=== PATIENT | male | born 1950 | race Caucasian/White ===

== ENCOUNTER → 2018-01-14 11:51 | Outpatient (CLI) | payer MEDICARE, BC, OTHER, SELFPAY ==
--- NOTE | 2018-01-14 | DI.MRI.S_ITS ---
PROCEDURE: MR KNEE RT WO CON INDICATIONS: RIGHT KNEE OSTEOARTHRITIS TECHNIQUE: Noncontrast sagittal PD fast spin echo and T2 fast spin echo with fat saturation, sagittal 3-D FLASH with fat saturation; coronal T1 spin echo and PD fast spin echo with fat saturation, and axial PD fast spin echo with fat saturation through the knee. COMPARISON: None. FINDINGS: Image quality: Excellent. Menisci: The medial and lateral menisci demonstrate normal morphology and internal signal. The meniscal root ligaments appear intact. Cruciate ligaments: The anterior and posterior cruciate ligaments appear intact. Medial structures: The lateral collateral ligament appears moderately degenerated but the medial meniscus is largely absent, and appears likely to have been involved by both degenerative involution and prior meniscal tears. The posterior oblique ligament, semimembranosus tendon insertions, oblique popliteal ligament, and meniscocapsular junction appear intact. Visualized portions of the pes anserinus tendons appear normal. No abnormal bursal fluid. Lateral structures: The lateral collateral ligament, long and short heads of the biceps femoris tendon appear intact. The popliteus tendon appears normal; the popliteofibular ligament appears intact. The posterosuperior and anteroinferior popliteomeniscal fascicles appear intact. The arcuate and fabellofibular ligaments appear intact, on either side of the lateral inferior geniculate artery. Iliotibial band appears normal. Anterior structures: The quadriceps and patellar tendons appear intact. Patellar alignment is normal. No femoral trochlear dysplasia or ventral trochlear prominence. No edema in the infrapatellar fat pad. Bones and cartilage: No traumatic acute appearing bone marrow contusions or fractures but there is extensive osteophytic spurring is seen along the medial compartment borders, and also small areas of reactive mild narrowing edema adjacent to areas of maximal osteoarthritic change. The cartilage of the medial and lateral femorotibial compartments, as well as the patellofemoral compartment, appears probably abnormal in thickness, virtually absent from the medial compartment where [id number] articulation is present. There is severe lateral compartment thinning of the articular cartilage is present and the the patellofemoral joint shows asymmetric lateral greater than medial facet degenerative thinning that is moderate overall. Joint space: There is a moderate excess of knee joint fluid. A moderately large posterior medial Foster's cyst is present with interdigitating fluid tracking inferiorly from the cyst indicating likely partial cyst rupture. Normal appearing synovial plicae are incidentally noted. IMPRESSION: Severe degenerative changes are present at the right knee, most pronounced at the medial compartment where the articular cartilage is virtually absent and the medial meniscus also appears to have involuted through degenerative change. Moderately severe degenerative change at the lateral compartment and moderate such degeneration at the patellofemoral joint. No intra-articular loose body is seen. A moderate joint effusion is found as expected considering the degree of degeneration present, and there is a moderately large partially ruptured Foster cyst at the posterior medial knee. Dictated by: Karan Pelletier M.D. on 01/14/2018 at 17:02 Approved by: Karan Pelletier M.D. on 01/14/2018 at 17:07
== END ==
PROVIDERS: Visit Provider Orthopaedic Surgery
DX: M17.11 Unilateral primary osteoarthritis, right knee (principal)
CPT/HCPCS: 73721

== ENCOUNTER 2018-02-03 06:46 | Day surgery (SDC) | payer MEDICARE, BC, OTHER, SELFPAY ==
[2018-01-20 12:53] VITALS: BMI 29.9
[2018-02-03] VITALS (14 sets, daily range): BP systolic 119–166; BP diastolic 63–102; PULSE 89–118; RESP 12–20; TEMP 36.3–37.1; O2SAT 92–96; BMI 29.9
--- NOTE | 2018-02-03 06:00 | DI.RAD.S_ITS ---
PROCEDURE: XR KNEE RT 1TO2V INDICATIONS: post op TECHNIQUE: 2 view(s) of the knee acquired. COMPARISON: [facility], CR, XR KNEE ARTHRITIC SERIES , 12/28/2017, 13:15. FINDINGS: Bones: Patient is status post knee joint arthroplasty. Hardware components are in expected positions. Visualized bony structures are intact. Soft tissues: Overlying postoperative changes are noted. IMPRESSION: Acute postoperative changes of total right knee arthroplasty. Dictated by: Antonio Paul M.D. on 02/03/2018 at 11:32 Approved by: Antonio Paul M.D. on 02/03/2018 at 11:33
[2018-02-03] MEDS: PREGABALIN 75 MG CAPSULE PO (07:20)
[2018-02-03] MEDS: ACETAMINOPHEN 325 MG TABLET 975 MG PO (07:20)
[2018-02-03] MEDS: CELECOXIB 200 MG CAPSULE PO (07:20)
[2018-02-03] MEDS: LACTATED RINGERS 1,000 ML 42 ML IV ×2 (07:30→09:48)
--- NOTE | 2018-02-03 07:44 | PM.PREOP ---
Pre-operative Note Interval Note Pre-op Check: Yes History & Physical Reviewed by Physician and Yes Exam Performed Changes: No
--- NOTE | 2018-02-03 07:45 | PM.OP.1 ---
Operative Date/Time/Diagnoses Date of procedure: 02/03/18 Pre-op diagnosis: Right knee osteoarthritis Post-op diagnosis: same Procedure & Clinicians Procedure: Right total knee arthroplasty Same procedure as scheduled: Yes Surgeon: Sarbjit Bess Customer Service Coordinator: Naif Ortiz Plan for aftercare: [facility] protocol for total knee arthroplasty. Aspirin for DVT prophylaxis.
--- NOTE | 2018-02-03 08:07 | SUR.PREOP ---
Block start time 0755[] . Monitoring initiated and maintained throughout procedure. Oxygen and medications given per anesthesiologist instructions. Patient remained stable throughout procedure, no adverse reactions noted. Block end time [0800].
[2018-02-03] MEDS: CEFAZOLIN 2 GM/100 ML FROZ.PIGGY IV ×2 (08:10→15:50)
[2018-02-03] MEDS: LIDOCAINE 1% W/EPI INJ 20 ML INJ (08:20)
--- NOTE | 2018-02-03 08:33 | PM.PROC.1 ---
Procedures Date/Time Date of procedure: 02/03/18 Time of procedure: 07:50 General Procedure description: Ultrasound guided adductor canal nerve block for post op pain control after right TKA by Dr. Bess. Risk and benefits of procedure discussed with patient. ASA monitoring applied to patient. O2 given via nasal cannula. 1 mg Versed and 50 mcg fentanyl given for procedural sedation. Skin site was prepped with chlorhexidine and allowed to fully dry. Sterile gloves, mask, hat and probe cover were used to maintain sterility. 2% lidocaine and 30ga needle was used to make a small skin wheal at needle insertion site. Under ultrasound guidance, a 21ga 100mm Pajunk needle was directed into the adductor canal near femoral artery and saphenous nerve at the level of mid thigh. Patient reported no parasthesias. After negative aspiration, 20 mL 0.5% ropivicaine and 10mg dexamethasone were injected around saphenous nerve. Patient tolerated procedure well.
--- NOTE | 2018-02-03 08:48 | SUR.OPER ---
Supine on padded OR bed. Pillow under head, arms secured on padded armboards <90 degree abduction. Safety belt across torso. Non-operative leg secured with tape over blanket over lower leg. Operative leg secured in Noah positioner. Foam padded brace at thigh of operative leg. gel bump under right hip.
[2018-02-03] MEDS: BUPIVACAINE 0.5% W/ EPI (PF) 20 ML, BUPIVACAINE LIPOSOME 266 MG, SODIUM CHLORIDE 0.9% 8... INJ (08:55)
[2018-02-03] MEDS: POVIDONE-IODINE 15 ML, SODIUM CHLORIDE 0.9% 250 ML TOP (08:55)
[2018-02-03] MEDS: BUPIVACAINE 0.5% W/ EPI (PF) 10 ML, TRANEXAMIC ACID 1,000 MG, SODIUM CHLORIDE 0.9% 20 ML INJ (08:56)
--- NOTE | 2018-02-03 10:42 | PM.OP.1 ---
Operative Date/Time/Diagnoses Date of procedure: 02/03/18 Time of procedure: 10:42 Pre-op diagnosis: Right knee osteoarthritis Post-op diagnosis: same Procedure & Clinicians Procedure: Right total knee arthroplasty Same procedure as scheduled: Yes Indications: The patient presents today for total knee arthroplasty after failure of conservative treatment. The nature of the procedure including the risks and benefits, alternatives, postoperative course and expected outcome were discussed and all questions answered. Consent was obtained. Operative site confirmed and marked. Surgeon: Sarbjit Bess Jewelry Bench Molder: Mira Sigala Anesthesia Type: General, Spinal and Local Operative Notes Findings: Preoperative range of motion was 15-90 degrees with a hard endpoint on flexion. Postoperative range of motion was 0-135 degrees. The knee hung to 115? with gravity alone. Closure Type: primary Specimen(s): none sent Implants & Drains: [employer] BCS: 6 femoral component, 6 tibial component, 10 mm BCS polyethylene tray and 35 x 9 mm round patella Applied: implant(s) Estimated Blood Loss (mL): 75 Blood products transfused: none Tourniquet time (min): 27 Procedure in detail: The patient was taken to the operative suite and placed under general and spinal anesthesia. The patient was given prophylactic antibiotics prior to surgery. The patient was also given tranexamic acid, 1 g, just prior to surgery for postoperative hemostasis. The lateral knee was prepped and the joint injected with 20 mL of 1% Lidocaine with epinephrine. The knee was then prepped and draped in usual sterile fashion. The leg was exsanguinated with an Esmarch dressing and the tourniquet raised to [250] torr. A 15 cm anterior incision was made. Next a medial trivector arthrotomy was made. The extensor mechanism was marked to ensure accurate repair. Initial exposing dissection was carried out medially and laterally. The knee was then extended and the patellar thickness was measured and a cut made removing approximately [9] mm of bone[ with a goal of restoring normal patellar thickness]. The patella was then sized and drilled. Some excess lateral bone was excised and the patellofemoral ligament released. The tourniquet was then released. The knee was then flexed and the [employer] femoral guide was placed. The anterior pins were placed and the distal rotation holes drilled. The distal cutting guide was placed and the templated distal femoral cut was made. A +2 femoral cut was then made with a normal cutting block given his 15 degree flexion contracture. The templating cutting block was then placed and the anterior, posterior and chamfer cuts made. The [employer] tibial guide was placed and the alignment checked along the axis of the proximal tibial with a jt. The proximal tibial cut was then made with an oscillating saw. All meniscus and bony debris was then removed. Flexion extension gaps were checked. The knee was tight posteriorly both medially and laterally and there is generalized tightness medially. Medial release was performed with an 18 gauge needle in the MCL as well as removal of large osteophytes. This better balance the knee medial lateral although there was still some increased lateral laxity particularly in extension. I did not feel I could release the MCL in further. The knee was still tight in flexion and could not fit the 9 mm block. The femur was reconnected to take another 2 mm posteriorly which corrected the flexion-extension gaps. The soft tissues were then injected with a combination of 20 mL of half percent Marcaine with epinephrine and 20 mL of Exparel. The trial components were then placed. The knee went into full extension and flexion beyond 120?. There was good medial- lateral balance throughout motion with some increase of lateral versus medial laxity in extension. Patellar tracking was excellent. The trial components were removed and size is confirmed for the final implants. The knee was then exsanguinated with an Esmarch dressing and the tourniquet reapplied for cementing. The knee was cleansed with Pulsavac irrigation and dried. The final components were cemented in with high viscosity vacuum mixed bone cement with antibiotics. The knee was held in extension and the patellar clamp until the cement had adequately cured. The knee was then irrigated with dilute Betadine solution. The extensor mechanism was closed with 5 interrupted #1 Vicryl sutures in 90 degrees of flexion. [The joint was then injected with a combination of 1 g of tranexamic acid and 20 mL of quarter percent Marcaine with epinephrine.] The subcutaneous tissue was closed with 2-0 Vicryl. The skin was closed with [yesenia and surgical adhesive]. [ An Aquacell] dressing and Juan wrap were then applied. Complications: none Condition: stable Disposition: PACU Plan for aftercare: [facility] postoperative protocol. Probable discharge to home today. Aspirin for DVT prophylaxis.
--- NOTE | 2018-02-03 10:49 | P.OP_ITS ---
Operative Date/Time/Diagnoses Date of procedure: 02/03/18 Time of procedure: 10:42 Pre-op diagnosis: Right knee osteoarthritis Post-op diagnosis: same Procedure & Clinicians Procedure: Right total knee arthroplasty Same procedure as scheduled: Yes Indications: The patient presents today for total knee arthroplasty after failure of conservative treatment. The nature of the procedure including the risks and benefits, alternatives, postoperative course and expected outcome were discussed and all questions answered. Consent was obtained. Operative site confirmed and marked. Surgeon: Sarbjit Bess Property Analyst: Mira Sigala Anesthesia Type: General, Spinal and Local Operative Notes Findings: Preoperative range of motion was 15-90 degrees with a hard endpoint on flexion. Postoperative range of motion was 0-135 degrees. The knee hung to 115? with gravity alone. Closure Type: primary Specimen(s): none sent Implants & Drains: [employer] BCS: 6 femoral component, 6 tibial component, 10 mm BCS polyethylene tray and 35 x 9 mm round patella Applied: implant(s) Estimated Blood Loss (mL): 75 Blood products transfused: none Tourniquet time (min): 27 Procedure in detail: The patient was taken to the operative suite and placed under general and spinal anesthesia. The patient was given prophylactic antibiotics prior to surgery. The patient was also given tranexamic acid, 1 g, just prior to surgery for postoperative hemostasis. The lateral knee was prepped and the joint injected with 20 mL of 1% Lidocaine with epinephrine. The knee was then prepped and draped in usual sterile fashion. The leg was exsanguinated with an Esmarch dressing and the tourniquet raised to [250] torr. A 15 cm anterior incision was made. Next a medial trivector arthrotomy was made. The extensor mechanism was marked to ensure accurate repair. Initial exposing dissection was carried out medially and laterally. The knee was then extended and the patellar thickness was measured and a cut made removing approximately [9] mm of bone[ with a goal of restoring normal patellar thickness ]. The patella was then sized and drilled. Some excess lateral bone was excised and the patellofemoral ligament released. The tourniquet was then released. The knee was then flexed and the [employer] femoral guide was placed. The anterior pins were placed and the distal rotation holes drilled. The distal cutting guide was placed and the templated distal femoral cut was made. A +2 femoral cut was then made with a normal cutting block given his 15 degree flexion contracture. The templating cutting block was then placed and the anterior, posterior and chamfer cuts made. The [employer] tibial guide was placed and the alignment checked along the axis of the proximal tibial with a jt. The proximal tibial cut was then made with an oscillating saw. All meniscus and bony debris was then removed. Flexion extension gaps were checked. The knee was tight posteriorly both medially and laterally and there is generalized tightness medially. Medial release was performed with an 18 gauge needle in the MCL as well as removal of large osteophytes. This better balance the knee medial lateral although there was still some increased lateral laxity particularly in extension. I did not feel I could release the MCL in further. The knee was still tight in flexion and could not fit the 9 mm block. The femur was reconnected to take another 2 mm posteriorly which corrected the flexion-extension gaps. The soft tissues were then injected with a combination of 20 mL of half percent Marcaine with epinephrine and 20 mL of Exparel. The trial components were then placed. The knee went into full extension and flexion beyond 120?. There was good medial- lateral balance throughout motion with some increase of lateral versus medial laxity in extension. Patellar tracking was excellent. The trial components were removed and size is confirmed for the final implants. The knee was then exsanguinated with an Esmarch dressing and the tourniquet reapplied for cementing. The knee was cleansed with Pulsavac irrigation and dried. The final components were cemented in with high viscosity vacuum mixed bone cement with antibiotics. The knee was held in extension and the patellar clamp until the cement had adequately cured. The knee was then irrigated with dilute Betadine solution. The extensor mechanism was closed with 5 interrupted #1 Vicryl sutures in 90 degrees of flexion. [The joint was then injected with a combination of 1 g of tranexamic acid and 20 mL of quarter percent Marcaine with epinephrine.] The subcutaneous tissue was closed with 2-0 Vicryl. The skin was closed with [ yesenia and surgical adhesive]. [ An Aquacell] dressing and Juan wrap were then applied. Complications: none Condition: stable Disposition: PACU Plan for aftercare: [facility] postoperative protocol. Probable discharge to home today. Aspirin for DVT prophylaxis.
--- NOTE | 2018-02-03 11:27 | SUR.PHASEI ---
Glasses with patient on transfer to acute care.
[2018-02-03] MEDS: LACTATED RINGERS 1,000 ML 125 ML IV (12:12)
--- NOTE | 2018-02-03 12:32 | PC.NURSE ---
Addendum entered by Ada Del Cid R.N. 02/03/18 14:45: CMS intact to LE, pt OOB with physical therapy and cleared to d/c home. Pt reports moderate pain to rt knee with ambulation up and down stairs but at rest denies any pain and refusing pain medication. Original Note: Transferred from PACU in bed ~1130, report received from MARQUITA Ch. Pt alert and talking. Reports no pain but numbess to amy feet. Calf SCD on. RA 95%. Pt in bed sitting upright, off-loading pressure from hips, massaging feet. Eager to d/c home tonight. P.T w/ brief eval, will assess after spinal block wears off. Spouse at bedside. Will continue to monitor CMS.
--- NOTE | 2018-02-03 14:19 | PM.PNPO.1 ---
Subjective Date Patient Seen: 02/03/18 Time Patient Seen: 11:19 Interval history: Patient seen bedside s/p R. TKA POD #0. Doing well, up with PT. Ready to go home. Exam Vital Signs (past 8 hours): - 02/03/18 07:31 02/03/18 10:42 02/03/18 10:47 Temperature 98.0 F 98.7 F Pulse Rate 105 H 118 H 114 H Respiratory Rate 18 12 14 Blood Pressure 166/102 H 130/73 H 129/70 H Pulse Oximetry 95 92 92 02/03/18 10:53 02/03/18 10:58 02/03/18 11:03 Temperature Pulse Rate 105 H 104 H 102 H Respiratory Rate 12 12 12 Blood Pressure 122/71 H 134/72 H 132/66 H Pulse Oximetry 96 96 93 02/03/18 11:08 02/03/18 11:14 02/03/18 11:27 Temperature 97.8 F 97.4 F L Pulse Rate 104 H 98 H 96 H Respiratory Rate 12 15 16 Blood Pressure 119/63 124/63 H 133/85 H Pulse Oximetry 94 95 95 Oxygen Delivery Method Room Air Oxygen Flow Rate 2 Narrative Exam Narrative: [facility] NAD A&O x3. Right knee dressing clean, dry and intact, calf soft and compressible. FROM of the ankle. Assessment & Plan Post-op (1) Primary osteoarthritis of right knee: Current Visit: Yes Status: Acute Postoperative Procedures Operation Date: 02/03/18 07:45 Actual Procedures Side Surgeon p Total Knee Arthroplasty Right Sarbjit Bess MD D/C home after cleared by PT. Follow post-operative care plan as outlined in [facility] book. Time Spent With Patient less than 15 minutes Quality VTE Deep Vein Thrombosis/Pulmonary Embolism Present on Admission: No
--- NOTE | 2018-02-03 14:35 | PT.IIE ---
Current Diagnoses Unilateral primary osteoarthritis, right knee (02/03/18) Surgery Performed Operation Date: 02/03/18 07:45 Actual Procedures p Total Knee Arthroplasty(Right) - Sarbjit Bess MD Surgical History (Last Updated 01/20/18 @ 13:15 by Estephanie Villegas, RN) History of arthroscopy of left knee (Acute) History of repair of right rotator cuff (Acute) Hx of hernia repair (Acute) Hx of lithotripsy (Acute) Hx of rhinoplasty (Acute) Hx of tonsillectomy (Acute) S/P colon resection (Acute) Status post total hip resurfacing (Acute) Medical History (Last Updated 01/20/18 @ 13:46 by Estephanie Villegas RN) Colovesical fistula (Acute) Easy bruisability (Acute) Eyes sensitive to light (Acute) HTN (hypertension) (Acute) Tonsillectomy planned (Acute) Physical Therapy Inpatient Evaluation/Re-Eval M1 PT/OT-IP Prior Functional Status Start: 02/03/18 15:38 Freq: NEEDED Status: Active Protocol: Document 02/03/18 14:35 MDD (Rec: 02/03/18 15:50 MDD [email or web address]) Medical Review Prior Functional Status Medical History Reviewed Yes Communication nml Mobility and Gait independent Activities of Daily Living and IADL's independent Prior Functional Level (Other details) independent Social History Household Members spouse Living Arrangements House Number of Floors (Floors) Two Floors Number of Stairs To Enter/Railing? 2 steps, B railing to a landing, 7 steps with R hand railing to enter home. Does not need to access lower floor . Home Environment High Toilet Walk in Shower Home Equipment Front Wheel Walker Straight Cane Grab Bars In Shower Employment Status Retired Additional Social History Comment Pt lives with his who is also retired. Has a son and daughter in law that live close by M2 PT-IP Current Condition Start: 02/03/18 15:38 Freq: NEEDED Status: Active Protocol: Document 02/03/18 14:35 MDD (Rec: 02/03/18 15:50 MDD [email or web address]) Physical Therapy Current Condition Current Condition Evaluation Date 02/03/18 Treatment Diagnosis s/p R TKA Onset Date 02/03/18 Weight Bearing Status Weight Bearing Status Weight Bear as Tolerated M3 PT-IP Subjective Start: 02/03/18 15:38 Freq: NEEDED Status: Active Protocol: Document 02/03/18 14:35 MDD (Rec: 02/03/18 15:50 MDD [email or web address]) Subjective Physical Therapy Visit Type Type Initial Evaluation Visit Start Time 11:48 Visit Stop Time 14:35 Total Visit Minutes 39 Notes Left room from 12:02 to 14:10 to allow spinal block to wear off. Pt initially reporting numbness in both feet and unable to actively dorsiflex or plantarflex. Number of CROSSCUTTER ROLLED GLASS Visits 0 Physical Therapy Visit Comments Patient Comments Pt agreeable to working with PT this afternoon. Is motivated to go home today. Therapy Pain Assessment Pain Present Pain Present Denied Pain M4 PT-IP Mobility and Gait Start: 02/03/18 15:38 Freq: NEEDED Status: Active Protocol: Document 02/03/18 14:35 MDD (Rec: 02/03/18 15:50 MDD [email or web address]) PT-Bed Mobility Assessment Rolling Type of Rolling Roll to Right Level of Assist Independent Supine to Sit Supine to Sit Standby Assistance Sit to Supine Sit to Supine Independent Scooting Scooting to Edge of Bed Independent Scooting Up and Down in Bed Independent PT-Transfer Assessment Sit to and From Stand Sit to and from Stand Contact Guard Assistance Equipment Transfer Assistive Device Gait Belt Standard Walker Transfers Transfer Destination Wheelchair Transfer Ability Level of Assist Contact Guard Assistance Gait Assessment Gait Gait Assistance Required: Standby Assistance Contact Guard Assist Distance (Feet) (feet) 192 Able to Maintain Weight Bearing Status Yes During Gait Assistive Devices Assistive Device Gait Belt Standard Walker Gait Deviations General Gait Pattern Within Normal Limits Antalgic Flexed Trunk Wide Based Gait Comments Gait Comments Pt required cues to slow gait speed and to avoid placing walker so far ahead of him. Stair Climbing Assessment Evaluation Level of Assist On Stairs Standby Assistance Contact Guard Assistance Devices Stair Climbing Assistive Devices Right Railing Technique/Endurance Stair Climbing Direction Ascend and Descend Stair Climbing Technique Step to Step Number of Steps Climbed 9 Query Text: Stair Climbing Set # Repetitions (reps) 3 Comments Stair Climbing Comments Pt prefers to step down backwards, so practiced this way on the last set. He demonstrated safety with SBA PT-Balance Assessment Sitting Balance and Reactions Static Sitting Balance Ability Normal Dynamic Sitting Balance Ability Normal Standing Balance and Reactions Static Standing Balance Ability Normal Dynamic Standing Balance Ability Good M5 PT-IP Objective Assessments Start: 02/03/18 15:38 Freq: NEEDED Status: Active Protocol: Document 02/03/18 14:35 MDD (Rec: 02/03/18 15:50 MDD [email or web address]) Orientation Orientation/Cognition Level of Alertness Alert Orientation Name Age Birthday Month Date Year Day of Week Place Situation Language Function Ability No Deficits Noted Safety Awareness Understands Safety Issues Memory Description No Deficits Noted Gross Range of Motion Lower Extremity ROM Assessment Within Functional Limits Strength Lower Extremity Strength Assessment Within Functional Limits Sensation Assessment Sensation Gross Sensation WNL Comments Sensation Comments Upon second attempt, nml sensation to light tough had returned. M6 PT-IP Treatment Start: 02/03/18 15:38 Freq: NEEDED Status: Active Protocol: Document 02/03/18 14:35 MDD (Rec: 02/03/18 15:50 MDD [email or web address]) Physical Therapy Treatment Exercises Knee ROM Measurement 0-90 Education Education Provided Precautions Weight Bearing Status Post-Op Packet Safety Other Treatments Other Treatment Performed Quick review of HEP. Pt did not perform today, noted that he felt confident with them. M7 PT-IP Assessment and Plan Start: 02/03/18 15:38 Freq: NEEDED Status: Active Protocol: Document 02/03/18 14:35 MDD (Rec: 02/03/18 15:50 MDD [email or web address]) PT Summary Assessment and Plan Potential Rehabilitation Potential Excellent Status of Condition at Evaluation Stable Summary Progress Towards Goals Safe For Discharge Goals Met Assessment Summary Pt demonstrates independent bed mobility and CGA to SBA for gait. Demonstrates ability to perform stair training safely. Considered safe to d/c home when medically appropriate. Is already scheduled for outpatient PT in [place]. Goals Bed Mobility Goal Standby Assistance Transfer Goal Standby Assistance Gait Goal Standby Assistance Gait Distance 150 Other Goals Ascend/descend 7 stairs with R hand railing with CGA to SBA. Days to Meet Goals 1 Frequency of Treatment Frequency Of Treatment Discharge Treatment Plan Physical Therapy Treatment Plan Gait Training Therapeutic Exercise Other Recommendations and Next Treatment If pt has not d/c to home by [facility] tomorrow AM, may review therex and recheck if pt has any additional questions. Recommendations To Nursing Amount of Assist Needed 1 Person Assist Discharge Recommendations PT Discharge Recommendations Home Outpatient PT
--- NOTE | 2018-02-03 17:10 | PC.NURSE ---
Abena shift note: Patient awake and alert, RLE WBAT in room. No c/o pain or discomfort. CMS intact to RLE. VSS and afebrile. Discharge instructions given to patient, verbalized understanding of instructions, discussed importance of F/U with Ortho on 02/09/2018.
== END 2018-02-03 17:30 | disposition home or self-care (01) ==
LOC: AC 14:19 → OR 02-04 11:55
PROVIDERS: PCP Internal Medicine; Visit Provider Orthopaedic Surgery
PROC: 0SRC0JZ Replacement of Right Knee Joint with Synthetic Substitute, Open Approach (ICD-10-PCS; CPT 27447; principal; 2018-02-03 07:45)
DX: M17.11 Unilateral primary osteoarthritis, right knee (principal); G89.18 Other acute postprocedural pain; Z87.891 Personal history of nicotine dependence; I10 Essential (primary) hypertension
CPT/HCPCS: 27447; 64450; 73560; 97116; 97161; C1776; C9290; J0690; J1100; J2250; J2405; J2704; J2795; J3010

== ENCOUNTER → 2018-06-10 10:40 | Outpatient (CLI) | payer MEDICARE, BC, OTHER, SELFPAY ==
[2018-02-03 07:08] VITALS: BMI 29.9
--- NOTE | 2018-06-10 | DI.MRI.S_ITS ---
PROCEDURE: MR KNEE LT WO CON INDICATIONS: Osteoarthritis. TECHNIQUE: Noncontrast sagittal PD fast spin echo and T2 fast spin echo with fat saturation, sagittal 3-D FLASH with fat saturation; coronal T1 spin echo and PD fast spin echo with fat saturation, and axial PD fast spin echo with fat saturation through the knee. COMPARISON: [facility] [place], CR, XR KNEE ARTHRITIC SERIES RT, 03/08/2018, 10:49. FINDINGS: Image quality: Excellent. Menisci: The medial meniscus demonstrates fragmentation, as well as truncation of its free edge, and a more precise signal intensity throughout its substance. Lateral meniscus demonstrates linear high signal intensity traversing its body, with demonstrating superior and inferior to the service extension, indicating complex horizontal tearing. Cruciate ligaments: The posterior cruciate ligament is intact. Anterior cruciate ligament is absent. Medial structures: The medial collateral ligament appears intact. Small amount of fluid deep to the medial collateral ligament. Mild T2 signal elevation at the tibial insertion of the semimembranosus. Visualized portions of the pes anserinus tendons otherwise appear normal. No abnormal bursal fluid. Lateral structures: The lateral collateral ligament demonstrates a small amount of fluid within its substance. The long and short heads of the biceps femoris tendon appear intact. The popliteus tendon appears normal. Iliotibial band appears normal. Anterior structures: The quadriceps and patellar tendons appear intact. Patellar alignment is normal. No femoral trochlear dysplasia or ventral trochlear prominence. No edema in the infrapatellar fat pad. Bones and cartilage: No bone marrow contusions or fractures. Moderate degree of subchondral ill-defined degenerative marrow edema and subchondral cysts within the medial femoral condyle and medial tibial plateau. Severe tricompartmental periarticular osteophyte formation. Prominent osteophyte protrudes superiorly from the superior patella. Severe diffuse articular cartilage loss overlies the weightbearing aspects of the medial femoral condyle and medial tibial plateau. Articular cartilage fibrillation overlies the medial and lateral patellar facets. Moderate articular cartilage loss overlies the patellofemoral compartment. Mild diffuse articular cartilage loss overlies the weightbearing aspects of the lateral femoral condyle and lateral tibial plateau, with superimposed mild to moderate regions of articular cartilage loss overlying the lateral femoral condyle anteriorly and the lateral tibial plateau medially. Joint space: There is a moderate knee joint effusion and a trace Foster's cyst. Small ganglion cyst along the popliteus. Multiple intra-articular loose bodies are present. Normal appearing synovial plicae are incidentally noted. IMPRESSION: 1. Medial and lateral meniscal tearing as described above. 2. Severe tricompartmental osteoarthritis with associated articular cartilage loss. 3. Medial collateral ligament bursitis. 4. Partial-thickness lateral collateral ligament tear. 5. Full-thickness anterior cruciate ligament tear. 6. Knee joint effusion, trace Foster's cyst, and multiple intra-articular loose bodies. 7. Insertional tendinitis of the semimembranosus. Dictated by: Praveen Mejia M.D. on 06/10/2018 at 11:42 Approved by: Praveen Mejia M.D. on 06/10/2018 at 11:48
== END ==
PROVIDERS: PCP Internal Medicine; Visit Provider Orthopaedic Surgery
DX: S83.272A Complex tear of lateral meniscus, current injury, left knee, initial encounter (principal); S83.242A Other tear of medial meniscus, current injury, left knee, initial encounter; S83.512A Sprain of anterior cruciate ligament of left knee, initial encounter; S83.422A Sprain of lateral collateral ligament of left knee, initial encounter; M17.12 Unilateral primary osteoarthritis, left knee; M71.562 Other bursitis, not elsewhere classified, left knee; M25.462 Effusion, left knee
CPT/HCPCS: 73721

== ENCOUNTER → 2018-06-24 08:40 | Outpatient (CLI) | payer MEDICARE, BC, OTHER, SELFPAY ==
[2018-02-03 07:08] VITALS: BMI 29.9
[2018-06-24 09:32] LABS: Add Manual Diff / Slide Review NO; Eosinophils Percent Auto 2.4 % (2-4); Hematocrit 43.3 % (41-53); Hemoglobin 15.2 g/dL (13.5-17.5); Lymphocytes Percent Auto 31.5 % (25-40); Mean Corpuscular HGB Conc 35.1 % (30-36); Mean Corpuscular Hemoglobin 31.1 PG (26-34); Mean Corpuscular Volume 88.5 fL (80-100); Monocytes Percent Auto 8.3 % (3-14); Neutrophils Absolute Auto 3400 /uL (3000-5900); Neutrophils Percent Auto 56.8 % (50-75); Platelet Count 243 X10^3/uL (150-400); Red Blood Cell Count 4.89 X10^6/uL (4.5-5.9); Red Cell Distribution Width 15.5 % (11.6-14.8)
[2018-06-24 09:50] LABS: Carbon Dioxide 22 mmol/L (22-32); Chloride 106 mmol/L (98-107); HEMOLYSIS < 15 (0-50); Potassium 4.2 mmol/L (3.4-5.1); Sodium 143 mmol/L (137-145)
== END ==
PROVIDERS: PCP Internal Medicine; Visit Provider Orthopaedic Surgery
DX: Z01.818 Encounter for other preprocedural examination (principal)
CPT/HCPCS: 36415; 80051; 85025; 93005; 93010

== ENCOUNTER 2018-07-28 11:26 | Day surgery (SDC) | payer MEDICARE, BC, OTHER, SELFPAY ==
[2018-02-03 07:08] VITALS: BMI 29.9
[2018-07-14 11:59] VITALS: BMI 30.3
[2018-07-28] VITALS (14 sets, daily range): BP systolic 112–175; BP diastolic 72–103; PULSE 92–108; RESP 9–18; TEMP 36.2–36.8; O2SAT 91–97; BMI 30.1
--- NOTE | 2018-07-28 06:00 | DI.RAD.S_ITS ---
PROCEDURE: XR KNEE LT 1TO2V INDICATIONS: post op films TECHNIQUE: 2 view(s) of the knee acquired. COMPARISON: [facility], CR, XR KNEE RT 1TO2V, 02/03/2018, 10:52. FINDINGS: Bones: Patient is status post knee joint arthroplasty. Hardware components are in expected positions. Visualized bony structures are intact. Soft tissues: Overlying postoperative changes are noted. IMPRESSION: Postsurgical changes from left total knee arthroplasty with anatomic left knee alignment. Dictated by: Prateek Olvera M.D. on 07/28/2018 at 16:52 Approved by: Prateek Olvera M.D. on 07/28/2018 at 16:52
[2018-07-28] MEDS: CELECOXIB 200 MG CAPSULE PO (12:04)
[2018-07-28] MEDS: ACETAMINOPHEN 325 MG TABLET 975 MG PO ×2 (12:04→21:59)
[2018-07-28] MEDS: PREGABALIN 75 MG CAPSULE PO (12:04)
[2018-07-28] MEDS: LACTATED RINGERS 1,000 ML 42 ML IV ×2 (12:30→14:46)
--- NOTE | 2018-07-28 13:33 | PM.PREOP ---
Pre-operative Note Interval Note History & Physical reviewed/Exam performed by Physician: Yes Changes to H&P: No
--- NOTE | 2018-07-28 13:34 | PM.OP.1 ---
Operative Date/Time/Diagnoses Date of procedure: 07/28/18 Time of procedure: 16:21 Pre-op diagnosis: Left knee osteoarthritis Post-op diagnosis: same Procedure & Clinicians Procedure: Left total knee arthroplasty Same procedure as scheduled: Yes Indications: The patient presents today for total knee arthroplasty after failure of conservative treatment. The nature of the procedure including the risks and benefits, alternatives, postoperative course and expected outcome were discussed and all questions answered. Consent was obtained. Operative site confirmed and marked. Surgeon: Sarbjit Bess Scientific Programmer Analyst: Naif Ortiz Anesthesia Type: General, Spinal and Local Operative Notes Findings: Severe osteoarthritis with varus alignment. Closure Type: primary Specimen(s): none sent Implants & Drains: [employer] BCS: 7 femoral component, 6 tibial component, 9 mm BCS polyethylene tray and 35 x 9 mm round patella Applied: implant(s) Estimated Blood Loss (mL): 50 Blood products transfused: none Tourniquet time (min): 24 Procedure in detail: The patient was taken to the operative suite and placed under general and spinal anesthesia. The patient was given prophylactic antibiotics prior to surgery. The patient was also given tranexamic acid, 1 g, just prior to surgery for postoperative hemostasis. The lateral knee was prepped and the joint injected with 20 mL of 1% Lidocaine with epinephrine. The knee was then prepped and draped in usual sterile fashion. The leg was exsanguinated with an Esmarch dressing and the tourniquet raised to 250 torr. A 15 cm anterior incision was made. Next a medial trivector arthrotomy was made. The extensor mechanism was marked to ensure accurate repair. Initial exposing dissection was carried out medially and laterally. The knee was then extended and the patellar thickness was measured and a cut made removing approximately 9 mm of bone with a goal of restoring normal patellar thickness. The patella was then sized and drilled. Some excess lateral bone was excised and the patellofemoral ligament released. The tourniquet was then released. The knee was then flexed and the [employer] femoral guide was placed. The anterior pins were placed and the distal rotation holes drilled. The distal cutting guide was placed and the templated distal femoral cut was made. The templating cutting block was then placed and the anterior, posterior and chamfer cuts made. The [employer] tibial guide was placed and the alignment checked along the axis of the proximal tibial with a jt. The proximal tibial cut was then made with an oscillating saw. All meniscus and bony debris was then removed. Flexion extension gaps were checked. The knee was still somewhat tight in both flexion and extension. This was corrected by removing another 2 mm from the tibia. No specific ligamentous balancing was required other than routine exposure and removal of extensive osteophytes. The soft tissues were then injected with a combination of 20 mL of half percent Marcaine with epinephrine and 20 mL of Exparel. The trial components were then placed. The knee went into full extension and flexion beyond 120?. There was good medial- lateral balance throughout motion with just slight increased laxity laterally and extension. Patellar tracking was excellent. The trial components were removed and size is confirmed for the final implants. The knee was then exsanguinated with an Esmarch dressing and the tourniquet reapplied for cementing. The knee was cleansed with Pulsavac irrigation and dried. The final components were cemented in with high viscosity vacuum mixed bone cement with antibiotics. The knee was held in extension and the patellar clamp until the cement had adequately cured. The knee was then irrigated with dilute Betadine solution. The extensor mechanism was closed with 5 interrupted #1 Vicryl sutures in 90 degrees of flexion. The joint was then injected with a combination of 1 g of tranexamic acid and 20 mL of quarter percent Marcaine with epinephrine. The subcutaneous tissue was closed with 2-0 Vicryl. The skin was closed with yesenia and surgical adhesive. An Aquacel dressing and Juan wrap were then applied. Complications: none Condition: stable Disposition: PACU Plan for aftercare: [facility] protocol for total knee arthroplasty.
--- NOTE | 2018-07-28 13:49 | SUR.OPER ---
Supine on padded OR bed. Pillow under head, arms secured on padded armboards <90 degree abduction. Safety belt across torso. Non-operative leg secured with tape over blanket over lower leg. Operative leg secured in DeMayo/Noah positioner. Foam padded brace at thigh of operative leg.
[2018-07-28] MEDS: CEFAZOLIN 2 GM/100 ML FROZ.PIGGY IV ×2 (14:05→21:58)
[2018-07-28] MEDS: TRANEXAMIC ACID 1,000 MG VIAL 1000 MG INJ (14:44)
[2018-07-28] MEDS: LIDOCAINE 1% W/EPI INJ 20 ML INJ (14:44)
[2018-07-28] MEDS: BUPIVACAINE LIPOSOME 266 MG/20 ML VIAL INJ (14:45)
[2018-07-28] MEDS: BUPIVACAINE 0.5% W/ EPI (PF) 10 ML, TRANEXAMIC ACID 1,000 MG, SODIUM CHLORIDE 0.9% 20 ML INJ (14:46)
[2018-07-28] MEDS: POVIDONE-IODINE 15 ML, SODIUM CHLORIDE 0.9% 250 ML TOP (14:47)
--- NOTE | 2018-07-28 16:56 | SUR.PHASEI ---
REPORT CALLED TO MARQUITA CUMMINS ON ACUTE CARE FLOOR. PT IN STABLE CONDITION, VSS. PT SITTING UP AND TALKING TO RN. PT DENIES ANY PAIN/DISCOMFORT OR NAUSEA. DRSG TO SURGICAL EXTREMITY C/D/I. SURGICAL EXTREMITY +SENSTATION. PT BEING TRANSFERRED TO ACUTE CARE FLOOR BY MARQUITA EKITA AT THIS TIME.
[2018-07-28] MEDS: TELMISARTAN 40 MG TABLET 80 MG PO (18:05)
[2018-07-28] MEDS: hydroCHLOROthiazide 12.5 MG CAPSULE PO (18:05)
[2018-07-28] MEDS: LACTATED RINGERS 1,000 ML 125 ML IV (19:02)
--- NOTE | 2018-07-28 20:21 | PC.NURSE ---
Pt denies pain to left knee and reports numbness to L foot s/p duramorph, ankle waves to bilateral feet, PPP to left foot, SIDRA wrap to left knee c/d/i, ice to left knee; HTN with BP 151/85 @ 1900, Dr Posada notified and IV fluids d/c; continuous pulse ox, RA=98%, LS clear, pt using IS and encouraged to cough/deep breath; denies nausea and tolerating large milkshake; family in room; pt educated about fall risk, bed alarm active
[2018-07-28] MEDS: ASPIRIN EC 81 MG TABLET PO (21:59)
[2018-07-29] MEDS: ONDANSETRON 4 MG/2 ML INJ IV (00:06)
--- NOTE | 2018-07-29 00:22 | PC.NURSE ---
Project Management It Specialist Note: 0000: Pt awake alert, up to bedside commode with one person assist. Vital signs stable. IV in place in lt wrist. Dressing and bernie wrap to lt knee cdi. Pt had emesis around 11pm but had declined Zofran. He states he will take Zofran now due to another episode of nausea.
[2018-07-29 01:14] VITALS: BP 149/91; PULSE 101; RESP 16; TEMP 36.8; O2SAT 96
[2018-07-29 05:29] LABS: Hematocrit 42.3 % (41-53); Hemoglobin 14.2 g/dL (13.5-17.5)
[2018-07-29 05:51] VITALS: BP 152/92; PULSE 109; RESP 18; TEMP 36.8; O2SAT 93
[2018-07-29] MEDS: CEFAZOLIN 2 GM/100 ML FROZ.PIGGY IV (06:41)
[2018-07-29 07:00] VITALS: BP 126/67; PULSE 99; RESP 18; TEMP 37.2; O2SAT 93
[2018-07-29 09:49] VITALS: PULSE 99; RESP 16; O2SAT 95
--- NOTE | 2018-07-29 09:58 | PT.IIE ---
Current Diagnoses Essential (primary) hypertension (07/28/18) Unilateral primary osteoarthritis, left knee (07/28/18) Surgery Performed Operation Date: 07/28/18 13:30 Actual Procedures p Total Knee Arthroplasty(Left) - Sarbjit Bess MD Surgical History (Last Updated 07/14/18 @ 13:14 by Lianna Franco RN) History of arthroscopy of left knee (Acute) History of repair of right rotator cuff (Acute) Hx of hernia repair (Acute) Hx of lithotripsy (Acute ~2011) Hx of rhinoplasty (Acute) Hx of tonsillectomy (Acute) Hx of total knee arthroplasty (Acute) S/P colon resection (Acute) Status post total hip resurfacing (Acute) Medical History (Last Updated 07/27/18 @ 14:55 by Suzanna Gaines RN) Biceps tendon rupture (Acute) Colovesical fistula (Acute) Degenerative arthritis of left knee (Acute) Easy bruisability (Acute) Eyes sensitive to light (Acute) HTN (hypertension) (Acute) Physical Therapy Inpatient Evaluation/Re-Eval M1 PT/OT-IP Prior Functional Status Start: 07/29/18 09:06 Freq: NEEDED Status: Active Protocol: Document 07/29/18 09:49 [facility] (Rec: 07/29/18 09:58 [facility] [id number]) Medical Review Prior Functional Status Medical History Reviewed Yes Diet/Fluid Consistency Regular Communication WNL Mobility and Gait indep without AD Activities of Daily Living and IADL's indep Prior Functional Level (Other details) Pt had R TKA in January and is recovering well Social History Household Members spouse Living Arrangements House Number of Floors (Floors) Two Floors Number of Stairs To Enter/Railing? 2 SRINIVAS with 2 rails; split level home 7 steps up and 7 down with 1 rail Home Environment Standard Height Toilet Walk in Shower Home Equipment Front Wheel Walker Straight Cane Crutches Raised Toilet Seat w/Armrests M2 PT-IP Current Condition Start: 07/29/18 09:06 Freq: NEEDED Status: Active Protocol: Document 07/29/18 09:49 [facility] (Rec: 07/29/18 09:58 [facility] [id number]) Physical Therapy Current Condition Current Condition Evaluation Date 07/29/18 Treatment Diagnosis L TKA Onset Date 07/28/18 Weight Bearing Status Weight Bearing Status Weight Bear as Tolerated M3 PT-IP Subjective Start: 07/29/18 09:06 Freq: NEEDED Status: Active Protocol: Document 07/29/18 09:49 [facility] (Rec: 07/29/18 09:58 [facility] [email or web address]) Subjective Physical Therapy Visit Type Type Initial Evaluation Visit Start Time 09:10 Visit Stop Time 09:45 Total Visit Minutes 35 Number of RETAIL AND PROMOTIONS COORDINATOR Visits 0 Physical Therapy Visit Comments Patient Comments Agreeable to get up to walk Patient Goals To go home today by 11 Therapy Pain Assessment Pain When Pain Assessed At Rest Pain Present Pain Present Denied Pain M4 PT-IP Mobility and Gait Start: 07/29/18 09:06 Freq: NEEDED Status: Active Protocol: Document 07/29/18 09:49 [facility] (Rec: 07/29/18 09:58 [facility] [id number]) PT-Bed Mobility Assessment Supine to Sit Supine to Sit Independent Scooting Scooting to Edge of Bed Independent PT-Transfer Assessment Sit to and From Stand Sit to and from Stand Standby Assistance Equipment Transfer Assistive Device Gait Belt Front Wheeled Walker Orthotic/Prosthetic Devices or Brace: No Comments Mobility Comments Pt stood to amb to stairs then rode w/c back and amb 20ft from w/c to recliner Gait Assessment Gait Gait Assistance Required: Standby Assistance Distance (Feet) 300 Able to Maintain Weight Bearing Status Yes During Gait Assistive Devices Assistive Device Gait Belt Front Wheeled Walker Orthotic/Prosthetic Devices or Brace: No Gait Deviations General Gait Pattern Flexed Trunk Factors Limiting Gait Function Factors Limiting Gait Function Decreased Strength Comments Gait Comments Pt amb with good mechanics lifting the walker as he would at home with his standard walker. He was safe and had no LOB during amb and able to progress from step to to step through gait Stair Climbing Assessment Evaluation Level of Assist On Stairs Standby Assistance Devices Stair Climbing Assistive Devices Right Railing Technique/Endurance Stair Climbing Direction Ascend and Descend Stair Climbing Technique Step to Step Number of Steps Climbed 3 Query Text: Comments Stair Climbing Comments up stairs fwd and able to lift walker to step in front and reach to pull down. Pt decended backwards PT-Balance Assessment Sitting Balance and Reactions Static Sitting Balance Ability Normal Dynamic Sitting Balance Ability Normal Standing Balance and Reactions Static Standing Balance Ability Good Dynamic Standing Balance Ability Fair M5 PT-IP Objective Assessments Start: 07/29/18 09:06 Freq: NEEDED Status: Active Protocol: Document 07/29/18 09:49 [facility] (Rec: 07/29/18 09:58 [facility] [id number]) Orientation Orientation/Cognition Level of Alertness Alert Gross Range of Motion Lower Extremity ROM Assessment Left Impaired Strength Lower Extremity Strength Assessment Left Impaired M6 PT-IP Treatment Start: 07/29/18 09:06 Freq: NEEDED Status: Active Protocol: Document 07/29/18 09:49 [facility] (Rec: 07/29/18 09:58 [facility] [email or web address]) Physical Therapy Treatment Exercises Exercises Ankle Pumps Education Education Provided Weight Bearing Status Safety Other Treatments Other Treatment Performed review of exercises verbally- pt able to review verbally and reports already doing them this Am M7 PT-IP Assessment and Plan Start: 07/29/18 09:06 Freq: NEEDED Status: Active Protocol: Document 07/29/18 09:49 [facility] (Rec: 07/29/18 09:58 [facility] [id number]) PT Summary Assessment and Plan Potential Rehabilitation Potential Excellent Status of Condition at Evaluation Evolving Summary Impairments ROM Strength Balance Gait Assessment Summary Pt is 1 day s/p L TKA with good understanding of prognosis & rehabilitation. He is motivated and cooperative with therapy and will likely progress well at home. Goals Gait Goal Independent Gait Distance 200ft Days to Meet Goals 1 Frequency of Treatment Frequency Of Treatment Twice a Day Treatment Plan Physical Therapy Treatment Plan Gait Training Therapeutic Exercise Balance Retraining Discharge Planning Other Recommendations and Next Treatment Pt to be seen only if further Focus questions or home concerns arise before d/c. Likely for pt to d/c later this AM or in the PM Recommendations To Nursing Amount of Assist Needed Standby Assistance Discharge Recommendations PT Discharge Recommendations Home Outpatient PT
[2018-07-29] MEDS: ASPIRIN EC 81 MG TABLET PO (10:03)
[2018-07-29] MEDS: ACETAMINOPHEN 325 MG TABLET 975 MG PO (10:03)
[2018-07-29] MEDS: MELOXICAM 7.5 MG TABLET 15 MG PO (10:04)
[2018-07-29] MEDS: TELMISARTAN 40 MG TABLET 80 MG PO (10:04)
[2018-07-29] MEDS: hydroCHLOROthiazide 12.5 MG CAPSULE PO (10:04)
--- NOTE | 2018-07-29 10:17 | PM.DS.1 ---
History of Present Illness Date Patient Seen: 07/29/18 Time Patient Seen: 10:17 Chief complaint: [id number] Narrative: The patient presents today for total knee arthroplasty after failure of conservative treatment. The nature of the procedure including the risks and benefits, alternatives, postoperative course and expected outcome were discussed and all questions answered. Consent was obtained. Operative site confirmed and marked. Discharge Providers Date of admission: 07/28/18 11:26 Primary care physician: Jennifer Matthews MD Consults: 07/28/18 17:05 Consult to Discharge Planning Routine Comment: Consult to Physical Therapy Evaluate & Treat Comment: Physician Instructions: postop TKA protocol Consult to Respiratory Therapy Evaluate & Treat Comment: Physician Instructions: Evaluate and treat Discharge provider: Susi Noel PA-C Discharge Date: 07/29/18 Summary Discharge Diagnosis: s/p left total knee arthroplasty Hospital Course: Raj was admitted for left total knee arthroplasty with Dr. Bess and he consented to procedure. Hospital course was unremarkable. On POD #1 patient was ready to DC home. He was eating and voiding without difficulty or assistance. He was up and ambulating with PT. He has his home medications. He has outpatient PT scheduled. Status at Discharge Functional status at discharge: uses cane/walker Exam Vital Signs (past 8 hours): - 07/29/18 05:51 07/29/18 07:00 07/29/18 09:49 Temperature 98.2 F 98.9 F Pulse Rate 109 H 99 H 99 H Respiratory Rate 18 18 16 Blood Pressure 152/92 H 126/67 Pulse Oximetry 93 93 95 Fraction of Inspired Oxygen 21 Oxygen Delivery Method Room Air Oxygen Flow Rate 0 Narrative Exam Narrative: Patient sitting in bedside chair in NAD. He is alert and oriented X3. Dressing on left knee is CDI. Juan wrap in place. Calves are soft, compressible, and nontender bilaterally. He is able to actively dorsiflex and plantarflex. SILT throughout BLEs. His pain is well controlled. He denies any discomfort and has no complaints. Objective Labs Result Diagrams: 07/29/18 05:05 Labs: Laboratory Results - last 24 hr 07/29/18 05:05 Hgb 14.2 Hct 42.3 Discharge Plan Discharge Plan Patient Disposition: Home Discharge comment: See [employer] manual for postoperative instructions. Discharge Med Rec/Prescriptions Prescriptions: Continue telmisartan-hydrochlorothiazid 80-12.5 mg Tablet 1 tab PO DAILY RF: 0 meloxicam 15 mg Tablet 15 mg PO DAILY RF: 0 turmeric root extract 500 mg Capsule 500 mg PO TID RF: 0 Follow up/Referrals: Sarbjit Bess MD [Physician] - 1 Week (5-7 days) Provider Discharge Instructions Diet: Regular Activity: Activity as tolerated. Cold/Heat Therapy: Ice the knee as needed. Skin/Wound/Dressing Care Report to your healthcare provider any signs of infection, such as:: chills, fever, increased pain and unusual drainage Dressing: May keep dressing in place for 7-10 days if intact. May shower over dressing. Visit Report/Discharge Packet Instructions: DI for Knee Replacement Discharge Data Primary Care Provider: Jennifer Matthews Attending Provider: Sarbjit Bess Admit Date/Time: 07/28/18 11:26
--- NOTE | 2018-07-29 12:23 | PC.NURSE ---
Day Shift-Pt A&OX4, able to make needs known, denies pain, states awareness to left knee incision. Pain management plan discussed, no prn's given. Pt agreeable to take schedule Acetaminophen and Mobic per order. pt ambulating OOB to [facility] [place] [facility] this AM with SBA, Voided approx 150mls and voided one more time prior to discharge, states no issue with voiding. LEft knee aquacel dressing CDI, bernie wrap present around knee. CWMS+, no edema. PPP. Pt's Anjana present at bedside for discharge review. Reviewed written and verbal discharge instructions from discharge summary packet. pt stated having follow up appointment with Dr. Bess office on 08/03 and has appointment for OP PT. No voiced concerns. Reviewed activity, medications, S/S of infection, dressing care, diet, prevent constipation. pt states is ready for discharge. No prescriptions as pt already has post op prescription filled and at home given prior to surgery. Pt left the unit at 1205 via wheelchair with nursing unit manager and pt's with all belongings. Pt left unit in no distress.
--- NOTE | 2018-07-29 12:49 | CM.IDA ---
Reviewed chart. Pt has left the floor and DC home this morning. Pt indp. at baseline and cleared by PT this morning for return home w/spouse to assist and outpt PT. No barriers to safe DC home indicated. KIRT
== END 2018-07-29 12:05 | disposition home or self-care (01) ==
LOC: AC 07-29 11:37 → OR 07-29 12:59 → AC 07-29 13:06
PROVIDERS: PCP Internal Medicine; Visit Provider Orthopaedic Surgery
PROC: 0SRD0JZ Replacement of Left Knee Joint with Synthetic Substitute, Open Approach (ICD-10-PCS; CPT 27447; principal; 2018-07-28 13:30)
DX: M17.12 Unilateral primary osteoarthritis, left knee (principal); I10 Essential (primary) hypertension; X50.1XXA Overexertion from prolonged static or awkward postures, initial encounter; Y93.69 Activity, other involving other sports and athletics played as a team or group
CPT/HCPCS: 27447; 36415; 73560; 85014; 85018; 94762; 97116; 97162; C1776; C9290; J0690; J1100; J2250; J2274; J2405; J2704; J3010